=== PATIENT | male | born 1970 | race Caucasian/White ===

== ENCOUNTER → 2016-08-12 | Outpatient (CLI) | payer BC ==
[2016-08-12 13:52] LABS: BASO % 0.4 %; BASO ABS # 0.02 K/uL (0-0.2); COMPLETE YES; EOS % 1.1 %; HEMATOCRIT 47.6 % (42-52); IG% 0.2 %; LYMPH % 39.8 %; LYMPH ABS # 1.83 K/uL (1.2-3.4); MEAN CELL VOLUME 90.2 fL (80-100); MEAN CORPUSCULAR HEMOGLOBIN 31.6 pg (25-34); MEAN CORPUSCULAR HGB CONC 35.1 g/dl (32-36); MEAN PLATELET VOLUME 11.3 fL (7.4-10.4); NEUT % 51.5 %; PLATELET COUNT 141 K/uL (130-400); RED BLOOD COUNT 5.28 M/uL (4.7-6.1)
[2016-08-12 14:07] LABS: ALT/SGPT 46 U/L (12-78); BLOOD UREA NITROGEN 6 mg/dl (7-18); BUN/CREATININE RATIO 8.4 (10-20); CARBON DIOXIDE 22 mmol/L (21-32); CHLORIDE 102 mmol/L (98-107); CHOLESTEROL 274 mg/dl (0-200); CREATININE 0.67 mg/dl (0.60-1.40); GLUCOSE 307 mg/dl (70-99); POTASSIUM 3.9 mmol/L (3.5-5.1); SODIUM 138 mmol/L (136-145)
[2016-08-12 14:08] LABS: CALCIUM 9.6 mg/dl (8.5-10.1)
[2016-08-12 14:18] LABS: ALB/GLOB RATIO 0.9 (0.9-2); ALKALINE PHOSPHATASE 102 U/L (45-117); AST/SGOT 29 U/L (15-37); CHOLESTEROL/HDL RATIO 6.7; HDL CHOLESTEROL 41 mg/dl; TRIGLYCERIDES 895 mg/dl (0-150)
[2016-08-12 14:23] LABS: BETA-HYDROXYBUTYRATE 23.89 mg/dL (0.2-2.81)
[2016-08-12 14:29] LABS: ESTIMATED AVERAGE GLUCOSE 295 mg/dl; HA1C FLAG Normal (Normal)
== END | disposition home or self-care (01) ==
LOC: C.LABSPEC 13:16
PROVIDERS: ATTEND Family Medicine
DX: R63.4 Abnormal weight loss (principal); E78.2 Mixed hyperlipidemia; I10 Essential (primary) hypertension

== ENCOUNTER → 2016-12-22 | Outpatient (CLI) | payer BC ==
[2016-12-22 13:25] LABS: ESTIMATED AVERAGE GLUCOSE 117 mg/dl; HA1C FLAG Normal (Normal)
[2016-12-22 14:38] LABS: BLOOD UREA NITROGEN 12 mg/dl (7-18); BUN/CREATININE RATIO 21.5 (10-20); CALCIUM 9.1 mg/dl (8.5-10.1); CARBON DIOXIDE 21 mmol/L (21-32); CHLORIDE 107 mmol/L (98-107); CREATININE 0.56 mg/dl (0.60-1.40); GLUCOSE 87 mg/dl (70-99); SODIUM 138 mmol/L (136-145)
[2016-12-22 14:41] LABS: ALKALINE PHOSPHATASE 82 U/L (45-117); ALT/SGPT 35 U/L (12-78); AST/SGOT 23 U/L (15-37)
== END | disposition home or self-care (01) ==
LOC: C.LABSPEC 12:57
PROVIDERS: ATTEND Family Medicine
DX: E11.9 Type 2 diabetes mellitus without complications (principal)